=== PATIENT | male | born 1975 | race Caucasian/White ===

== ENCOUNTER 2024-03-11 04:30 | Emergency (ER) | payer SELFPAY ==
[~2024-03-11] VITALS: Ht 170.2 cm; Wt 56.7 kg
[2024-03-11 04:46] VITALS: BP 166/110; PULSE 86; RESP 16; TEMP 98.3; O2SAT 97
[2024-03-11] MEDS ORDERED: MIRABULK PO (05:09)
[2024-03-11] MEDS ORDERED: IBUP-2213 PO (05:09)
[2024-03-11 05:15] VITALS: BP 136/93; PULSE 80; RESP 18; TEMP 98.3; O2SAT 98
== END 2024-03-11 05:15 | disposition home or self-care (01) ==
LOC: MED 04:30
DX: K59.00 Constipation, unspecified (principal); R03.0 Elevated blood-pressure reading, without diagnosis of hypertension; Z79.899 Other long term (current) drug therapy
CPT/HCPCS: 99283